=== PATIENT | female | born 1975 | race Caucasian/White ===

== ENCOUNTER 2020-02-28 04:44 | Inpatient (IN) | payer BC ==
[~2020-02-28] VITALS: Ht 170.2 cm; Wt 142.8 kg
[2020-02-28] MEDS ORDERED: IV NORMAL SALINE 1,000ML 1,000 ML IV SCH (04:50)
--- NOTE | 2020-02-28 04:55 | PHYS DOC ---
Past History Past Medical History: Anxiety, Diabetes, Hypertension Past Medical History obesity (SHADI BROOKS DO) Past Surgical History: No Surgical History (SHADI BROOKS DO) Smoking: Non-smoker Alcohol Use: Rarely Drug Use: None (SHADI BROOKS DO) General Adult EDM: Chief Complaint: CHEST PAIN HPI: HPI: Patient is a 44 year old female who presents for evaluation of moderate central chest pain. She states it woke her up from sleep about 4 AM. She took 81 mg aspirin prior to arrival. Patient denies any shortness of air or other symptoms. 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 Patient is not currently on a blood thinner. Furthermore she had a rapid heart rate at home and was very anxious. Patient r ecently started Effexor about 1 week ago. Patient denies any sweats or other complaints. Patient does not have a known cardiac disorder. (SHADI BROOKS DO) Review of Systems: Review of Systems: Constitutional: Denies fever or chills Eyes: Denies change in visual acuity HENT: Denies nasal congestion or sore throat Respiratory: Denies cough or shortness of breath Cardiovascular: has chest pain no edema GI: Denies abdominal pain, nausea, vomiting, bloody stools or diarrhea : Denies dysuria Musculoskeletal: Denies back pain or joint pain Integument: Denies rash Neurologic: Denies headache, focal weakness or sensory changes Endocrine: Denies polyuria or polydipsia Lymphatic: Denies swollen glands Psychiatric: Denies depression but has anxiety (SHADI BROOKS DO) Current Medications: Current Meds: Current Medications Aspirin (Aspirin Chewable) 241 mg 1X ONCE PO Last administered on 02/28/20at 05:02; Start 02/28/20 at 05:00; Stop 02/28/20 at 05:58; Status DC Sodium Chloride 1,000 ml @ 100 mls/hr Q10H IV Last administered on 02/28/20at 05:01; Start 02/28/20 at 04:50; Stop 02/28/20 at 14:49 Iohexol (Omnipaque 350 Mg/ml) 100 ml 1X ONCE IV Last administered on 02/28/20at 06:09; Start 02/28/20 at 06:00; Stop 02/28/20 at 06:01; Status DC Info (Do NOT chart on this entry -- for MONITORING) 1 each PRN DAILY PRN MC SEE COMMENTS; Start 02/28/20 at 06:00; Stop 03/01/20 at 05:59 (CHRISTOS WEI MD) Physical Exam: PE: Constitutional: Well developed, well nourished, moderate acute distress, non- toxic appearance. [] HENT: Normocephalic, atraumatic, bilateral external ears normal, oropharynx moist, no oral exudates, nose normal. [] Eyes: PERRL, EOMI, conjunctiva normal, no discharge. [] Neck: Normal range of motion, no tenderness, supple. [] Cardiovascular:Heart rate regular rhythm, no murmur [] Lungs & Thorax: Bilateral breath sounds clear to auscultation [] Abdomen: Bowel sounds normal, soft, no tenderness, no masses. [] Skin: Warm, dry, no erythema, no rash. [] Back: No tenderness. [] Extremities: No tenderness, no cyanosis, ROM intact, no edema. [] Neurologic: Alert and oriented X 3, normal motor function, normal sensory function, no focal deficits noted. [] Psychologic: Affect normal, judgement normal, mood abnormal. [] (SHADI BROOKS DO) Current Patient Data: Vital Signs: Vital Signs Date Time Temp Pulse Resp B/P (MAP) Pulse Ox O2 Delivery O2 Flow Rate FiO2 02/28/20 05:47 97 165/111 (129) 96 Room Air 02/28/20 04:45 98.4 20 (CHRISTOS WEI MD) EKG: EKG: EKG sinus tachycardia rate 101, leftward axis, flattened T waves lead aVL, otherwise unremarkable EKG, not STEMI [] (SHADI BROOKS DO) EKG: EKG interpreted by me: sinus tach, rate 101, normal axis, rbbb patter, ns st changes, low voltage (CHRISTOS WEI MD) Radiology/Procedures: Radiology/Procedures: [address] [address] IMAGING REPORT Signed PATIENT: NEREIDA BROWN LACCOUNT: [id number] : 1975 LOCATION: ER AGE: 44 SEX: F EXAM STATUS: REG ER ORD. PHYSICIAN: SHADI BROOKS DO REASON: chest pain PROCEDURE: PORTABLE CHEST 1V PORTABLE CHEST 1V Clinical History: Reason: chest pain / Spl. Instructions: / History: Technique: AP view of the chest was obtained at 02/28/2020 4:50 AM. Comparison: None. Findings: The cardiomediastinal silhouette is normal. The pulmonary vasculature is normal. The lungs and pleural margins are clear. Impression: No evidence of an acute cardiopulmonary process. Electronically signed by: Cali Soria III, MD (02/28/2020 5:17 AM) [facility] DICTATED AND SIGNED BY: CALI SORIA III, MD DATE: 02/28/20516 CC: PCP,UNKNOWN; SHADI BROOKS DO ~ [] (SHADI BROOKS DO) Radiology/Procedures: [address] [address] IMAGING REPORT Signed PATIENT: NEREIDA BROWN LACCOUNT: [id number] : 1975 LOCATION: ER AGE: 44 SEX: F EXAM STATUS: REG ER ORD. PHYSICIAN: SHADI BROOKS DO REASON: chest pain, hypercoaguable state, PE protcol, OMNI 350, 100ml PROCEDURE: CT ANGIOGRAPHY CHEST CTA Chest with contrast: Clinical History: Reason: chest pain, hypercoaguable state, PE protcol, OMNI 350, 100ml / Spl. Instructions: / History: Shortness of breath. Axial helical images of the chest were obtained after the administration of 100 cc of IV Omni 350 and timed appropriately for a pulmonary arterial study. Conventional axial reconstruction was performed in addition to coronal, sagittal and bilateral oblique MIP (maximum intensity projection). This study was ordered to detect possible pulmonary embolism. There are no filling defects to suggest pulmonary embolism. The lungs and pleural margins are clear. There is no mediastinal or hilar lymphadenopathy. The thoracic aorta appears normal. Impression: 1. No evidence of pulmonary embolism. 2. No significant findings. PQRS Compliance Statement: One or more of the following individualized dose reduction techniques were utilized for this examination: 1. Automated exposure control 2. Adjustment of the mA and/or kV according to patient size 3. Use of iterative reconstruction technique Electronically signed by: Cali Soira III, MD (02/28/2020 6:37 AM) [facility] DICTATED AND SIGNED BY: CALI SORIA III, MD DATE: 02/28/20 0637 CC: CHRISTOS WEI MD; PCP,UNKNOWN; SHADI BROOKS DO ~ (CHRISTOS WEI MD) Heart Score: HEART Score for Chest Pain: HEART Score for Chest Pain Response (Comments) Value History Moderately Suspicious 1 ECG Normal 0 Age >45 - < 65 1 Risk Factors 1 or 2 Risk Factors 1 Troponin < Normal Limit 0 Total 3 Risk Factors: Risk Factors: DM, Current or recent (<one month) smoker, HTN, HLP, family history of CAD, obesity. Risk Scores: Score 0 - 3: 2.5% MACE over next 6 weeks - Discharge Home Score 4 - 6: 20.3% MACE over next 6 weeks - Admit for Clinical Observation Score 7 - 10: 72.7% MACE over next 6 weeks - Early Invasive Strategies (SHADI BROOKS DO) HEART Score for Chest Pain: HEART Score for Chest Pain Response (Comments) Value History Moderately Suspicious 1 ECG Nonspecific Repolarizatio 1 Age >45 - < 65 1 Risk Factors 1 or 2 Risk Factors 1 Troponin < Normal Limit 0 Total 4 Course & Med Decision Making: Course & Med Decision Making Pertinent Labs and Imaging studies reviewed. (See chart for details) [] (SHADI BROOKS DO) Course & Med Decision Making Patient reassessed at 6:55 AM and pain is improved. Patient has a heart score of 4 he will need a longer rule out [place]. CT angiogram was done due to elevated D-dimer which is negative for thoracic aortic dissection or pulmonary embolism. Discussed the case with Dr. Dalal who will admit for rule out [place]. (CHRISTOS WEI MD) Dragon Disclaimer: Dragon Disclaimer: This electronic medical record was generated, in whole or in part, using a voice recognition dictation system. 0523 stable, patient never chest pain-free at this time. She is much less anxious at this time. Her heart rate is improved to 100 bpm. In light of her hypercoagulable state a CT angio chest was ordered for further evaluation pulmonary embolism protocol. 0600 care of case turned over to at shift change. (SHADI BROOKS DO) Departure Departure: Impression: Primary Impression: Precordial chest pain Disposition: 09 ADMITTED INPT THIS HOSP Admitting Physician: Blaine Dalal (CHRISTOS WEI MD) Condition: STABLE Referrals: PCP,UNKNOWN (PCP) SHADI BROOKS DO Feb 28, 2020 04:55 CHRISTOS WEI MD Feb 28, 2020 06:09
[2020-02-28] MEDS ORDERED: ASPIRIN CHEWABLE 81 MG TABLET. PO ONE (05:00)
--- NOTE | 2020-02-28 05:02 | EKG ---
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
[2020-02-28 05:08] LABS: BASO # 0.1 x10^3/uL (0.0-0.2); BASO % 1 % (0-3); EOS # 0.1 x10^3/uL (0.0-0.7); EOS % 1 % (0-3); HEMATOCRIT 42.2 % (36.0-47.0); HEMOGLOBIN 14.3 g/dL (12.0-15.5); LYMPH # 2.2 x10^3/uL (1.0-4.8); LYMPH % 28 % (24-48); MEAN CORPUSCULAR HEMOGLOBIN 30 pg (25-35); MEAN CORPUSCULAR HGB CONC 34 g/dL (31-37); MEAN CORPUSCULAR VOLUME 89 fL (79-100); MONO # 0.5 x10^3/uL (0.0-1.1); MONO % 6 % (0-9); NEUT # 5.2 x10^3uL (1.8-7.7); NEUT % 65 % (31-73); PLATELET COUNT 346 x10^3/uL (140-400); RED BLOOD COUNT 4.77 x10^6/uL (3.50-5.40); RED CELL DISTRIBUTION WIDTH 13.4 % (11.5-14.5); WHITE BLOOD COUNT 8.1 x10^3/uL (4.0-11.0)
[2020-02-28 05:16] LABS: CALCIUM 9.2 mg/dL (8.5-10.1); CREATININE 0.8 mg/dL (0.6-1.0); GFR 77.2; POTASSIUM 3.7 mmol/L (3.5-5.1)
--- NOTE | 2020-02-28 05:20 | RAD ---
PORTABLE CHEST 1V Clinical History: Reason: chest pain / Spl. Instructions: / History: Technique: AP view of the chest was obtained at 02/28/2020 4:50 AM. Comparison: None. Findings: The cardiomediastinal silhouette is normal. The pulmonary vasculature is normal. The lungs and pleural margins are clear. Impression: No evidence of an acute cardiopulmonary process. Electronically signed by: Cesar Lewis III, MD (02/28/2020 5:17 AM) [facility]
[2020-02-28 05:30] LABS: ALBUMIN 3.8 g/dL (3.4-5.0); TOTAL BILIRUBIN 0.6 mg/dL (0.2-1.0); TOTAL PROTEIN 7.7 g/dL (6.4-8.2)
[2020-02-28] MEDS ORDERED: CONTRAST GIVEN. MC PRN (06:00)
[2020-02-28] MEDS ORDERED: IOHEXOL 350 MG/ML 100 ML VIAL. IV ONE (06:00)
--- NOTE | 2020-02-28 06:40 | RAD ---
CTA Chest with contrast: Clinical History: Reason: chest pain, hypercoaguable state, PE protcol, OMNI 350, 100ml / Spl. Instructions: / History: Shortness of breath. Axial helical images of the chest were obtained after the administration of 100 cc of IV Omni 350 and timed appropriately for a pulmonary arterial study. Conventional axial reconstruction was performed in addition to coronal, sagittal and bilateral oblique MIP (maximum intensity projection). This study was ordered to detect possible pulmonary embolism. There are no filling defects to suggest pulmonary embolism. The lungs and pleural margins are clear. There is no mediastinal or hilar lymphadenopathy. The thoracic aorta appears normal. Impression: 1. No evidence of pulmonary embolism. 2. No significant findings. PQRS Compliance Statement: One or more of the following individualized dose reduction techniques were utilized for this examination: 1. Automated exposure control 2. Adjustment of the mA and/or kV according to patient size 3. Use of iterative reconstruction technique Electronically signed by: Cesar Lewis III, MD (02/28/2020 6:37 AM) [facility]
[2020-02-28 06:50] LABS: PREG TEST PT QUAL NEGATIVE (NEG)
[2020-02-28] MEDS ORDERED: KETOROLAC 15 MG/ML VIAL. IVP ONE (07:00)
[2020-02-28 07:59] LABS: BACTERIA,URINE FEW /HPF (0-FEW); BILIRUBIN,URINE NEG (NEG); CLARITY,URINE CLEAR; COLOR,URINE YELLOW; GLUCOSE,URINE NEG (NEG); NITRITE,URINE NEG (NEG); RBC,URINE OCC /HPF (0-2); SQUAMOUS EPITHELIAL CELL,UR MOD /LPF; UROBILINOGEN,URINE 0.2 mg/dL (0.2 mg/dL)
[2020-02-28 09:11] VITALS: BP 137/74
[2020-02-28] MEDS ORDERED: VENL37.5 PO (13:14)
--- NOTE | 2020-02-28 13:53 | HP ---
ADMIT DATE: 02/28/2020 ATTENDING PHYSICIAN: Dr. Hooks. CHIEF COMPLAINT: Chest pain, central. HISTORY OF PRESENT ILLNESS: The patient is a pleasant 44-year-old female admitted through the ED with new onset of chest pain, central in nature, epigastric. It woke her up from sleep about 4:00 a.m. She has been taking 81 mg of aspirin. She has minimal risk factors. She has a known clotting disorder. When she was , she had a blood clot. Since then her , she has been on Lovenox. She has known factor V Leiden deficiency as well as MTHFR gene. Currently, she just takes an aspirin. She has not had any recurrent clots. Furthermore, she had a rapid heart rate at home. She was a bit anxious, recently started on Effexor for postmenopausal symptoms. She has had a hysterectomy. In the ED, chest x-ray, EKG is nondiagnostic. Cardiac enzymes initially were negative for coronary ischemia. She is admitted for further evaluation, monitoring and serial cardiac enzymes. PAST MEDICAL HISTORY: Significant for borderline diabetes. She is not on any medications. She has essential hypertension, generalized anxiety. SOCIAL HISTORY: She is a nonsmoker, nondrinker. She drinks caffeine. FAMILY HISTORY: Noncontributory. She has had factor V Leiden deficiency. She has had 3 pregnancies, 3 girls, the youngest one is 12. CURRENT MEDICATIONS: She currently is only on an aspirin daily and Effexor started by her sales and service technician. REVIEW OF SYSTEMS: Significant for the localized chest pain. No recent travel, fevers, chills, COVID exposure. All other systems reviewed and turned to be negative. PHYSICAL EXAMINATION: GENERAL: When I saw her, this is a pleasant, alert, young female. INITIAL VITAL SIGNS: Showed a blood pressure 137/74, pulse is 80 and regular. She was afebrile, oxygen saturation 94% on room air. HEENT: Head is without trauma. Pupils are reactive. Sclerae nonicteric. Oropharynx is clear. NECK: Supple, no bruits. LUNGS: Otherwise clear. CARDIOVASCULAR: Showed regular heart tones. No gallops, no murmurs. Peripheral pulses are palpable and full. ABDOMEN: Soft, nontender, no organomegaly. Bowel sounds were hypoactive. EXTREMITIES: Show no cyanosis or edema. NEUROLOGIC: Focally intact. Speech is fluent. SKIN: Warm and dry. DIAGNOSTIC STUDIES: Chest x-ray done in the ED showed no acute cardiopulmonary process. She had a CT angiogram done without any evidence of pulmonary embolus. The first set of cardiac enzymes are negative for coronary ischemia. Nonfasting blood sugar 134. Electrolytes all within normal range. The hemoglobin is 14.3 g/dL with white count of 8100. ASSESSMENT: 1. A 44-year-old female with atypical chest pain. I suspect it is noncardiac in nature. 2. History of factor V Leiden deficiency, blood clots ruled out, no evidence of PE at this time. 3. I suspect musculoskeletal type pain since it is somewhat reproducible. 4. History of polycystic ovary syndrome. 5. Previous hysterectomy. PLAN: 1. Admit to the observation status. 2. Serial cardiac enzymes. 3. Diet as tolerated. 4. We will monitor for signs of further pain. ASAF HOOKS MD DR: YAZMIN/fan JOB#: [id number] / [id number] Alissa Wagner
--- NOTE | 2020-02-28 15:33 | DS ---
DATE OF DISCHARGE: 02/28/2020 ATTENDING PHYSICIAN: Dr. Hooks. FINAL DISCHARGE DIAGNOSES: 1. Atypical chest pain, coronary ischemia ruled out. 2. Probable musculoskeletal chest pain. 3. Known clotting disorder with factor V Leiden deficiency. 4. Pulmonary embolus ruled out. 5. Borderline diabetes. 6. Obesity. HISTORY AND PHYSICAL: This pleasant 44-year-old female presented to the ED with chest pain, waking her from sleep. She denied any exertion. No recent travel. No fevers or chills. She was admitted for further evaluation. Initial set of enzymes were negative. PHYSICAL EXAMINATION: Please see the dictated note. PERTINENT LABORATORY AND X-RAY STUDIES: Admission hemoglobin 14.3 grams, white count 8100. Electrolytes within normal range. Three sets of cardiac enzymes were drawn and they were indeed negative for coronary ischemia, less than 0.01. Chest x-ray was nondiagnostic. CT angiogram showed no evidence of blood clots. COURSE IN THE HOSPITAL: The patient was admitted. Three sets of enzymes were negative, reassurance. At this time, she has minimal risk factors and it was not cardiac in nature. When the third set was available, she had lunch. Her pain had subsided. She wanted to go home. I felt this is reasonable. Sometime down the road if symptoms persist, she may have an outpatient evaluation with Cardiology for a stress evaluation. At this time, she was discharged from our hospital in stable condition with explicit instructions and followup care. 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 I explained to her one of the side effect is weight gain. She will take her aspirin daily. She was discharged then from our hospital in stable condition with explicit instructions and followup care. ASAF HOOKS MD DR: YAZMIN/fan JOB#: [id number] / [id number] Dr. Alissa Wagner
== END 2020-02-28 14:30 | disposition home or self-care (01) | DRG 206 ==
LOC: ER 04:44 → ICU 07:00 → OBSVTOIN 10:30
PROVIDERS: ADMIT Hospitalist; ATTEND Hospitalist
DX: M94.0 Chondrocostal junction syndrome [Tietze] (principal); Z68.42 Body mass index [BMI] 45.0-49.9, adult; R07.89 Other chest pain; E11.9 Type 2 diabetes mellitus without complications; E66.9 Obesity, unspecified; F41.1 Generalized anxiety disorder; I10 Essential (primary) hypertension; Z79.82 Long term (current) use of aspirin; Z90.710 Acquired absence of both cervix and uterus; F41.9 Anxiety disorder, unspecified
CPT/HCPCS: 36415; 71045; 71275; 80053; 81001; 81025; 83690; 83880; 84484; 84703; 85025; 85379; 93005; G0378; G0379; Q9967; 99285-25; J7030

== ENCOUNTER → 2020-09-05 | Outpatient (CLI) | payer BC ==
[~2020-09-05] MED LIST: VENL37.5 PO
--- NOTE | 2020-09-12 17:49 | RAD ---
DATE: 09/05/2020 EXAM: DIGITAL SCREEN BILAT W/CAD HISTORY: Screening COMPARISON: 06/01/2018 This study was interpreted with the benefit of Computerized Aided Detection (CAD). Breast Density: SCATTERED The breast parenchyma shows scattered fibroglandular densities. Breast parenchyma level B. FINDINGS: No mass, suspicious calcification, or architectural distortion in either breast. IMPRESSION: No evidence of malignancy. BI-RADS CATEGORY: 1 NEGATIVE RECOMMENDED FOLLOW-UP: 12M 12 MONTH FOLLOW-UP PQRS compliance statement: Patient information was entered into a reminder system with a target due date for the next mammogram. Mammography is a sensitive method for finding small breast cancers, but it does not detect them all and is not a substitute for careful clinical examination. A negative mammogram does not negate a clinically suspicious finding and should not result in delay in biopsying a clinically suspicious abnormality. "Our facility is accredited by the [employer] Mammography Program."
== END ==
LOC: MAMMO 08:53
PROVIDERS: ATTEND Family Medicine
DX: Z12.31 Encounter for screening mammogram for malignant neoplasm of breast (principal)
CPT/HCPCS: 77067